=== PATIENT | female | born 1995 | race Caucasian/White ===

== ENCOUNTER 2019-12-13 12:47 | Emergency (ER) | payer MEDICAID, OTHER ==
[~2019-12-13] VITALS: Ht 180.3 cm; Wt 65.8 kg
[2019-12-13 12:55] VITALS: BP 126/76
[2019-12-13] MEDS ORDERED: ACETAMINOPHEN 500 MG TAB PO ONE (14:00)
== END 2019-12-13 14:08 ==
LOC: ER 12:47
DX: S01.419A Laceration without foreign body of unspecified cheek and temporomandibular area, initial encounter (principal); W22.8XXA Striking against or struck by other objects, initial encounter; Y93.89 Activity, other specified; Y92.89 Other specified places as the place of occurrence of the external cause; Y99.8 Other external cause status